=== PATIENT | female | born 1990 | race American Indian/Alaskan Native ===

== ENCOUNTER 2019-04-22 17:44 | Outpatient (CLI) | payer MEDICAID, SELFPAY ==
[2016-03-07 09:47] VITALS: BMI 21.9
[2019-04-22 18:33] VITALS: BMI 24.6
--- NOTE | 2019-04-22 18:34 | US_ITS ---
STUDY: RENAL ULTRASOUND - COMPLETE REASON FOR EXAM: Female, 29 years old. Right flank pain x2 months, patient is 28 weeks TECHNIQUE: Ultrasound evaluation of the kidneys was performed with real-time and static demarco-scale imaging. COMPARISON: None. FINDINGS: RIGHT KIDNEY: Normal location of the right kidney, which is normal in size. The right kidney measures 10.1 x 4.5 x 5.1 cm. There is a normal cortex of the right kidney. The renal cortex measures 1.5 cm. There is no right renal mass or cyst. There is a nonobstructing 6 mm calculus of the lower pole. There is no right hydronephrosis. DISTAL RIGHT URETER: There is non-visualization of the distal right ureter. There is no demonstrated right ureterovesical junction calculus. There is no demonstrated right ureteral jet. LEFT KIDNEY: Normal location of the left kidney, which is normal in size. The left kidney measures 10.6 x 4.9 x 4.7 cm. There is a normal cortex of the left kidney. The renal cortex measures 1.9 cm. There is no left renal mass or cyst. There are no left renal calculi. There is no left hydronephrosis. DISTAL LEFT URETER: There is non-visualization of the distal left ureter. There is no demonstrated left ureterovesical junction calculus. There is no demonstrated left ureteral jet. BLADDER: The distended urinary bladder has a volume of 15 ml. . There is a normal wall thickness of the distended urinary bladder. The bladder wall measures 2 mm in thickness. There is no demonstrated mass within the urinary bladder. There are no demonstrated bladder calculi. US/Kidney and Bladder IMPRESSION: Nonobstructing 6 mm calculus of the right kidney. There is no hydronephrosis or renal cystic or mass lesion. Electronically Signed: Brendan North MD at 20:16 EDT , Service support ,
[2019-04-22 19:20] LABS: Color, Urine Yellow (Yellow); Glucose, Dipstick Normal (Normal); Ketone-Dipstick Negative (Negative); Leukocyte Esterase-Dipstick 25 /ul (Negative); Nitrite-Dipstick Negative (Negative); Occult Blood-Urine Negative /ul (Negative); Protein-Dipstick Negative (Negative); Specific Gravity, Urine 1.015 (1.002-1.030); Urine Bilirubin Dipstick Negative (Negative); Urine Clarity Sl. Cloudy (Clear); Urine Urobilinogen Normal (Normal); Urine pH 6.5 (5.0 - 8.0)
--- NOTE | 2019-04-22 20:05 | OB.TRI.NOTE ---
History of Present Illness Date of Service: 04/22/19 Was patient seen by the physician?: Yes Reason For Visit: R FLANK AND BACK PAIN Final MARI: 07/15/19 Final MARI Source: US <20 weeks Gestational age: 28 Weeks and 0 Days History of Present Illness: 29yo at 28wga who received care in [place] presents with c/o 1. rectal bleeding with bowel movement and 2. right upper abdominal/lower chest pain. Reports upper abdominal pain started a few months ago, but has persistently worsened. She has pain intermittently, but worsened after eat and accompanied by vomiting most evenings of the week after dinner. She denies fever, chills, dysuria, frequency. She has no special diet. She has the lower chest pain throughout the day, it comes and goes and radiates to her back to just under the shoulder blade. Recent URI. Allergies No Known Allergies Allergy (Verified 02/02/16 10:12) Laboratory Studies: Laboratory Tests 04/22/19 Range/Units 18:45 Urine Color Yellow (Yellow) Urine Clarity Sl. Cloudy (Clear) Urine pH 6.5 (5.0 - 8.0) Ur Specific [place] 1.015 (1.002-1.030) Urine Protein Negative (Negative) mg/dl Urine Glucose (UA) Normal (Normal) mg/dl Urine Ketones Negative (Negative) mg/dl Urine Occult Blood Negative (Negative) /ul Urine Nitrite Negative (Negative) Urine Bilirubin Negative (Negative) mg/dL Urine Urobilinogen Normal (Normal) mg/dl Ur Leukocyte Esterase 25 H (Negative) /ul Review of Systems Constitutional: Denies: Fever, Weight Change HEENT: Denies: Sore Throat Cardiovascular: Denies: Chest Pain, Edema Respiratory: Denies: Cough, Shortness of Breath Gastrointestinal: Reports: Abdominal Pain, Vomiting. Denies: Constipation, Diarrhea, Nausea Physical Exam Vitals: avss General: Alert, Oriented x3, Cooperative, No apparent distress HEENT: Atraumatic, Normocephalic Cardiovascular: Regular Rhythm Lungs: - - + tenderness of intercostal spaces at right lower ribes Abdomen: Soft, Non Tender, Non-Distended, Gravid, - - No hemorrhoids visible, perianal fissue is present Extremities:: No edema Neurological: Neuro grossly intact DREDGE OR BARGE SHORE HAND: Normal external genitalia Estimated gestational size: Appropriate for gestational size NST - FHR Rate Baby A Variability:: Moderate Accelerations:: 15 x 15 Decelerations:: None NST Reactive:: Yes, Appropriate for gestational age FHR Category:: Category I Uterine Activity:: none Impression/Plan 29yo @ 28wga with 1. costochondritis - APAP prn 2. brendan-anal fissue - cannot r/o hemorrhoid. Discussed increasing fiber, hydration to avoid constipation, stool softener. 3. RUQP - RUQ US ordered, f/u results
--- NOTE | 2019-04-22 20:24 | US_ITS ---
STUDY: ABDOMINAL ULTRASOUND - RIGHT UPPER QUADRANT REASON FOR VISIT: Female, 29 years old right upper quadrant pain and vomiting TECHNIQUE: Ultrasound evaluation of the right upper quadrant was performed with real-time and static mckenna-scale imaging. TECHNICAL QUALITY: Adequate. COMPARISON: None. FINDINGS: Liver: The liver measures 14.8 cm. There is normal echogenicity of the liver. The bile ducts are within normal limits. There is hepatic color flow. The direction of portal flow is hepatopetal. There is no demonstrated mass lesion. Gallbladder: Normal distended gallbladder. The gallbladder wall measures 2 mm. There is a negative sonographic Barker's sign. There is no pericholecystic fluid. There are no gallstones. Common Bile Duct (C.B.D.): The common bile duct measures 3 mm. Pancreas: Normal size of the head, body and tail of the pancreas. There is normal echogenicity of the pancreas. There is no demonstrated pancreatic mass or cyst. Right Kidney: Normal size of the right kidney. The right kidney measures 10.1 x 4.9 x 4.9 cm. Normal renal cortex. The right cortex measures 1.0 cm. There is no demonstrated renal mass or cyst. There is no right hydronephrosis. There is a nonobstructing 6 mm calculus of the lower pole. US/Gallbladder IMPRESSION: Nonobstructing 6 mm calculus of the lower pole of the right kidney. The study is otherwise unremarkable. Electronically Signed: Brendan North MD at 21:22 EDT , Service support ,
== END 2019-04-22 22:15 | disposition home or self-care (01) ==
LOC: WPOUT 17:46 → WP 17:46
PROVIDERS: Family Provider Family Medicine; PCP Family Medicine; Referring Provider Obstetrics & Gynecology; Visit Provider Obstetrics & Gynecology
DX: O26.893 Other specified pregnancy related conditions, third trimester (principal); K62.5 Hemorrhage of anus and rectum; M94.0 Chondrocostal junction syndrome [Tietze]; Z3A.28 28 weeks gestation of pregnancy
CPT/HCPCS: 59025; 59050; 76705; 76770; 81002; 87086; 87088; 99218; G0378